=== PATIENT | female | born 1940 | race Caucasian/White ===

== ENCOUNTER 2024-10-14 16:13 | Outpatient (CLI) | payer MEDICARE, SELFPAY | END 2024-10-14 16:14 | disposition home or self-care (01) | LOC: AMB 10-24 03:02 | PROVIDERS: PCP Internal Medicine; Visit Provider Emergency Medicine | DX: R11.10 Vomiting, unspecified (principal); R19.7 Diarrhea, unspecified; R42 Dizziness and giddiness; M54.2 Cervicalgia | CPT/HCPCS: A0425; A0427 ==

== ENCOUNTER 2024-10-30 20:00 | Outpatient (CLI) | payer MEDICARE, SELFPAY | END 2024-10-30 20:01 | disposition home or self-care (01) | LOC: AMB 11-01 02:59 | PROVIDERS: PCP Internal Medicine; Visit Provider Family Medicine | DX: R53.1 Weakness (principal); R42 Dizziness and giddiness; R03.1 Nonspecific low blood-pressure reading | CPT/HCPCS: A0425; A0427 ==